=== PATIENT | male | born 1995 | race Caucasian/White ===

== ENCOUNTER 2017-08-22 21:13 | Emergency (ER) | payer OTHER ==
[2017-08-22 22:23] VITALS: BP 122/58
--- NOTE | 2017-08-22 22:31 | ED Physician Documentation ---
PD HPI UPPER EXT INJURY - Stated complaint Stated Complaint: FINGER LAC - Chief complaint Chief Complaint: Laceration - History obtained from History obtained from: Patient, Family - History of Present Illness Location: Right, Finger (index, dorsum) Where injury occurred: Work Timing - onset: How many hours ago (1) Timing - duration: Hours (1) Timing - details: Abrupt onset Pain level max: 3 Pain level now: 1 Improved by: Rest Worsened by: Palpating Associated symptoms: No: Weakness, Numbness, Tingling, Swelling - Additonal information Additional information: accidental laceration of dorsum of R index finger when he dropped a knife at work. Pt is right handed. Td UTD. Review of Systems Neurologic: denies: Focal weakness, Numbness PD PAST MEDICAL HISTORY - Past Medical History Past Medical History: No - Past Surgical History Past Surgical History: No - Present Medications Home Medications: Ambulatory Orders Medication Instructions Recorded Confirmed No Known Home Medications [No 08/22/17 08/22/17 Known Home Medications] - Allergies Allergies/Adverse Reactions: Allergies Allergy/AdvReac Type Severity Reaction Status Date / Time No Known Drug Allergies Allergy Verified 08/22/17 21:20 - Social History Does the pt smoke?: No Smoking Status: Never smoker PD ED PE NORMAL - Vitals Vital signs reviewed: Yes - General General: Alert and oriented X 3 - Derm Derm: Warm and dry - Extremities Extremities: Other (small flap laceration dorsum of R index finger, proximal phalanx. Superficial. No tendon or nerve injury. NVI. 0.3cm) Results - Vitals Vitals: Vital Signs - 24 hr 08/22/17 22:22 Temperature 36.6 C Heart Rate 79 Respiratory 18 Rate Blood Pressure 122/58 L O2 Saturation 100 Oxygen O2 Source Room air Procedures - Laceration (location) R index finger Length in cm: 0.3 Wound type: Curved, Flap, Superficial Neurovascular status: Sensory intact, Motor intact, Vascular intact Tendon involvement: Tendon intact Wound Preparation: Irrigated copiously NS, Wound explored, To the base Skin layer closure: Dermabond Other: Patient tolerated well, No complications, Neurovascular intact, Tetanus UTD Complexity: Simple PD MEDICAL DECISION MAKING - ED course Complexity details: considered differential, d/w patient, d/w family ED course: Patient is a 22-year-old male who presents to the emergency department with a small flap laceration to the dorsum of the proximal phalanx of the right index finger. No tendon, neuro or vascular injury. Repaired with Dermabond. Tolerated well. Placed in a finger splint for tonight. Warnings of infection and instructions on wound care given at bedside. Also counseled on how to minimize scarring. Patient counseled regarding signs and symptoms for which I believe and urgent re-evaluation would be necessary. Patient with good understanding of and agreement to plan and is comfortable going home at this time This document was made in part using voice recognition software. While efforts are made to proofread this document, sound alike and grammatical errors may occur. Departure - Departure Disposition: 01 Home, Self Care Clinical Impression: Laceration of finger Qualifiers: Encounter type: initial encounter Finger: index finger Damage to nail status: without damage Foreign body presence: without foreign body Laterality: right Qualified Code(s): S61.210A - Laceration without foreign body of right index finger without damage to nail, initial encounter Condition: Good Instructions: ED Laceration Hand Follow-Up: your,doctor in 1 week [Other] Comments: Return if you worsen. Keep the wound clean. Return for redness, swelling or drainage from the wound. Discharge Date/Time: 08/22/17 22:35
== END 2017-08-22 22:35 | disposition home or self-care (01) ==
LOC: ED 21:13
DX: S61.210A Laceration without foreign body of right index finger without damage to nail, initial encounter (principal); W26.0XXA Contact with knife, initial encounter; Y99.0 Civilian activity done for income or pay
CPT/HCPCS: 12001; 29130; 99283